=== PATIENT | female | born 1935 | race Caucasian/White ===

== ENCOUNTER 2022-01-19 11:10 | Emergency (ER) | payer MEDICARE ==
[~2022-01-19] VITALS: Ht 154.9 cm; Wt 68.0 kg
[2022-01-19 12:03] LABS: BASOPHILS % 0.4 % (0.0-2.0); EOSINOPHILS % 0.7 % (0.0-5.0); HEMOGLOBIN. 13.1 g/dL (12.0-16.0); MEAN CORPUSCULAR VOLUME 66.1 fL (81.0-99.0); MEAN PLATELET VOLUME 9.6 fl (7.4-10.4); NEUTROPHILS % 85.9 % (40.0-76.0); PLATELET 212 x1000/uL (130-400); RED BLOOD CELL COUNT 6.21 mill/uL (4.2-5.4); RED CELL DISTRIBUTION WIDTH 17.2 % (11.6-14.6)
[2022-01-19 12:08] LABS: CHLORIDE 103 mEq/L (98-107)
[2022-01-19 12:54] LABS: PLATELET ESTIMATE NORMAL
[2022-01-19 17:58] VITALS: BP 132/72
== END 2022-01-19 17:59 | disposition home or self-care (01) ==
LOC: ER 11:10
DX: E11.649 Type 2 diabetes mellitus with hypoglycemia without coma (principal)
CPT/HCPCS: 36415; 80053; 82962; 84484; 85025; 93005; 99284